=== PATIENT | male | born 1985 | race Caucasian/White ===

== ENCOUNTER 2017-09-04 12:16 | Emergency (ER) | payer SELFPAY ==
[2017-09-04 12:17] VITALS: BP 149/86; PULSE 113; RESP 16; TEMP 36.3; O2SAT 100; BMI 24.9
--- NOTE | 2017-09-04 12:38 | RAD_ITS ---
STUDY: X-RAY CHEST REASON FOR EXAM: Male, 31 years old. Cough TECHNIQUE: 2 views of the chest were obtained COMPARISON: September 08, 2013 FINDINGS: Bilateral perihilar streaky opacities. No lung consolidation, pleural effusion or pneumothorax. Cardiac size is within normal limits. Osseous structures demonstrate no acute abnormalities. There is calcified granuloma in the left lower lobe retrocardiac region present RAD/Chest PA and Lateral IMPRESSION: No evidence for focal airspace disease. Mild bilateral perihilar streaky opacities may relate with bronchitis Electronically Signed: Anthony Gonzalez, at 13:05 EST Tel , Service support ,
--- NOTE | 2017-09-04 12:49 | ED.VISSUMM ---
- ER Visit Summary Date of Service: 09/04/17 Chief Complaint: [] Cough for 1 week History of Present Illness: The patient is a 31 M [] reports she has had a harsh cough 1 week smoker he has no history of MS PE DVT COPD or any lung or heart conditions the cough is generally nonproductive but occasionally thick mucus. He has had no fever he is able to eat and drink he works as a otr owner operator truck driver he has had no URI symptoms, again he does smoke his review of systems are otherwise negative Physical Examination: [] Signs are unremarkable he is afebrile pulse ox 100% his nose is clear the throat was clear the lungs are clear heart tones are normal upper lower extremities unremarkable no cyanosis clubbing or edema, he has no cough here in the department Test Results: [] Emergency Department Course and Treatment: [] X-rays obtained is unremarkable, streaky perihilar abnormalities, but no infiltrate or signs of pneumonia through the [facility] I explained to him given all that he will be started on Proventil inhaler he will be given [facility] on-call physicians for follow-up and is to return for change in symptoms Treatment Plan: [] Disposition: [] Home stable Impression: [] Cough This note was generated with [employer] dictation software. It may contain incorrect words, spelling, and punctuation that were not noted in review of the chart prior to signing ED Disposition - Plan for ED Patient: Chief Complaint: Cough Instructions: ED Upper Resp Infec No Abx Tx Prescriptions: Albuterol Inhaler [Ventolin Hfa] 1 - 2 puff INHALATION Q4H PRN PRN #1 inhaler PRN Reason: Wheezing Referrals: Care Physician,No Primary [Primary Care Provider] - Gracie Conner MD [[facility]] -
--- NOTE | 2017-09-04 12:55 | DCINST.ED_ITS ---
ED Disposition - Plan for ED Patient: Chief Complaint: Cough Instructions: ED Upper Resp Infec No Abx Tx Prescriptions: Albuterol Inhaler [Ventolin Hfa] 1 - 2 puff INHALATION Q4H PRN PRN #1 inhaler PRN Reason: Wheezing Referrals: Care Physician,No Primary [Primary Care Provider] - Gracie Conner MD [[facility]] -
[2017-09-04 13:14] VITALS: PULSE 100; RESP 18
[2017-09-04] MEDS: Ipratropium/Albuterol Sulfate 3 ML AMPUL.NEB INHALATION (13:14)
== END 2017-09-04 14:04 | disposition home or self-care (01) ==
LOC: ED 13:38
PROVIDERS: Emergency Provider Emergency Medicine
DX: R05 Cough (principal); R91.8 Other nonspecific abnormal finding of lung field; F17.200 Nicotine dependence, unspecified, uncomplicated
CPT/HCPCS: 71046; 94640; 99282